=== PATIENT | female | born 1990 | race American Indian/Alaskan Native ===

== ENCOUNTER 2020-03-30 07:30 | Emergency (ER) | payer SELFPAY ==
[2020-03-30] MEDS ORDERED: diphenhydrAMINE 50 MG/ML VIAL IV ONE (08:02)
[2020-03-30] MEDS ORDERED: levETIRAcetam 1000 MG/NS 0.75% 1,000 MG/100 ML BAG IV ONE (08:02)
--- NOTE | 2020-03-30 08:06 | Emergency Department Report ---
ED General Adult HPI - General Chief complaint: Seizure Stated complaint: SEIZURE Time Seen by Provider: 03/30/20 07:52 Source: EMS Mode of arrival: Stretcher Limitations: No Limitations - History of Present Illness Initial comments: This is a 30-year-old female who presents fully ambulatory after transport via EMS after a generalized seizure. She is awake alert and oriented x3. Apparently she has no problem with giving a thoroughly variable history. Initially she states that she has never been on Tegretol. Shortly there after she states that she was on Tegretol and that it "caused me to have seizures". She now states that she is taking Keppra but has to take Benadryl along with it because she is allergic. In either case she admits to noncompliance with both medicines. She states that she does not remember when her last seizure is. However, just thereafter she states that it might of been a few months ago. She denies alcohol or drug use. Apparently, the patient has been here in 2016 after an intentional overdose of Tegretol. Review of her 2016 labs does indicate that she did have an elevated Tegretol level. Patient has no point symptoms of depression or suicidal ideation. She states that she has been well prior to this generalized seizure. Severity scale (0 -10): 0 Associated Symptoms: denies other symptoms - Related Data Home Medications Medication Instructions Recorded Confirmed Last Taken carBAMazepine [TEGretol] 200 mg PO TID 01/14/1501/30/01/07/15 Previous Rx's Medication Instructions Recorded Last Taken Type levETIRAcetam [Keppra TAB] 500 mg PO BID #60 tablet 03/30/20 Unknown Rx Allergies Allergy/AdvReac Type Severity Reaction Status Date / Time latex Allergy Rash Verified 01/14/15 17:02 levetiracetam [From Keppra] Allergy Hives Verified 03/30/20 07:54 peanut Allergy Angioedema Verified 03/10/15 19:17 ED Review of Systems ROS: Stated complaint: SEIZURE Other details as noted in HPI Constitutional: denies: chills, fever Eyes: denies: eye pain, vision change ENT: denies: ear pain, throat pain Respiratory: denies: cough, shortness of breath Cardiovascular: denies: chest pain, palpitations Endocrine: no symptoms reported Gastrointestinal: denies: abdominal pain, nausea, diarrhea Genitourinary: denies: urgency, dysuria, discharge Musculoskeletal: denies: back pain, joint swelling Skin: denies: rash, lesions Neurological: as per HPI. denies: headache, weakness, paresthesias Psychiatric: denies: anxiety, depression Hematological/Lymphatic: denies: easy bleeding, easy bruising ED Past Medical Hx - Past Medical History Hx Seizures: Yes - Social History Smoking Status: Unknown if ever smoked Substance Use Type: None (Denied) - Medications Home Medications: Home Medications Medication Instructions Recorded Confirmed Last Taken Type carBAMazepine [TEGretol] 200 mg PO TID 01/14/15 01/31/16 01/07/15 History levETIRAcetam [Keppra TAB] 500 mg PO BID #60 tablet 03/30/20 Unknown Rx ED Physical Exam - General Limitations: No Limitations General appearance: alert, in no apparent distress - Head Head exam: Present: atraumatic, normocephalic - Eye Eye exam: Present: normal appearance, PERRL, EOMI. Absent: scleral icterus - ENT ENT exam: Present: mucous membranes moist - Neck Neck exam: Present: normal inspection. Absent: tenderness, meningismus - Respiratory Respiratory exam: Present: normal lung sounds bilaterally. Absent: respiratory distress - Cardiovascular Cardiovascular Exam: Present: regular rate, normal rhythm. Absent: systolic mu rmur, diastolic murmur, rubs, gallop - GI/Abdominal GI/Abdominal exam: Present: soft, normal bowel sounds. Absent: distended, tenderness, guarding, rebound - Extremities Exam Extremities exam: Present: normal inspection - Back Exam Back exam: Present: normal inspection - Neurological Exam Neurological exam: Present: alert, oriented X3, CN II-XII intact. Absent: motor sensory deficit - Psychiatric Psychiatric exam: Present: normal mood, flat affect - Skin Skin exam: Present: warm, dry, intact, normal color. Absent: rash ED Course Vital Signs 03/30/20 03/30/20 03/30/20 07:43 07:54 08:54 Pulse Rate 96 H 96 H Respiratory 18 18 18 Rate Blood Pressure 128/86 Blood Pressure 128/86 [Left] O2 Sat by Pulse 96 96 97 Oximetry - Reevaluation(s) Reevaluation #1: Patient resting comfortably and ready for discharge. There was no sign of an allergic reaction to Keppra. Keppra will be prescribed. 03/30/20 10:05 ED Medical Decision Making - Lab Data Result diagrams: 03/30/20 07:59 Critical care attestation.: If time is entered above; I have spent that time in minutes in the direct care of this critically ill patient, excluding procedure time. ED Disposition Clinical Impression: Seizure, Seizure disorder Disposition: DC-01 TO HOME OR SELFCARE Is pt being admited?: No Does the pt Need Aspirin: No Condition: Stable Instructions: Recurrent Seizures Adult (ED) Additional Instructions: Do not drive until you are cleared by a licensed physician preferably and neurologist. Follow-up with [facility] Rx Keppra. Prescriptions: levETIRAcetam [Keppra TAB] 500 mg PO BID #60 tablet Referrals: PRIMARY CARE, [Primary Care Provider] - 3-5 Days [facility] [Provider Group] - 2-3 Days Time of Disposition: 10:06
[2020-03-30 08:22] LABS: Basophils % (Auto) 0.4 % (0.0-1.8); Eosinophils # (Auto) 0.1 K/mm3 (0.0-0.4); Eosinophils % (Auto) 1.1 % (0.0-4.3); Hematocrit 36.4 % (30.3-42.9); Hemoglobin 11.7 gm/dl (10.1-14.3); Lymphocytes # (Auto) 1.6 K/mm3 (1.2-5.4); Lymphocytes % (Auto) 18.1 % (13.4-35.0); Mean Corpuscular HGB Conc 32 % (30-34); Mean Corpuscular Volume 81 fl (79-97); Monocytes # (Auto) 0.8 K/mm3 (0.0-0.8); Monocytes % (Auto) 8.8 % (0.0-7.3); Platelet Count 354 K/mm3 (140-440); Red Blood Count 4.51 M/mm3 (3.65-5.03); Red Cell Distribution Width 16.9 % (13.2-15.2)
[2020-03-30 08:26] LABS: Bilirubin,Urine NEG (Negative); Blood,Urine NEG (Negative); Color,Urine Straw (Yellow); Mucus,Urine FEW /HPF; Urobilinogen,Urine < 2.0 mg/dL (<2.0)
[2020-03-30 08:27] LABS: HCG Qualitative,Urine Negative (Negative)
[2020-03-30 08:33] LABS: Amphetamine Screen,Urine Negative; Benzodiazepines Screen,Urine Negative; Cocaine Screen,Urine Negative; Methadone Screen,Urine Negative; Opiate Screen,Urine Negative
[2020-03-30 08:57] LABS: Cannabinoid Screen,Urine Positive
[2020-03-30 10:59] LABS: Blood Urea Nitrogen 11 mg/dL (7-17); Calcium 8.9 mg/dL (8.4-10.2); Hemolysis Index 7
[2020-03-30 11:03] LABS: BUN/Creatinine Ratio 18
[2020-03-30 16:37] VITALS: BP 114/62
== END 2020-03-30 16:21 | disposition home or self-care (01) ==
LOC: ED 07:30
DX: G40.909 Epilepsy, unspecified, not intractable, without status epilepticus (principal); Z79.899 Other long term (current) drug therapy; Z88.8 Allergy status to other drugs, medicaments and biological substances; Z91.010 Allergy to peanuts; Z91.040 Latex allergy status
CPT/HCPCS: 36415; 80048; 80307; 81001; 81025; 85025; 87086; 96365; 96366; 96375; 99284; J1200; J1953